=== PATIENT | female | born 1980 | race African-American/Black ===

== ENCOUNTER 2023-02-25 10:23 | Emergency (ER) | payer OTHER ==
[2023-02-25 10:39] VITALS: BP 136/85; PULSE 64; RESP 16; TEMP 98.2; BMI 25.0
[2023-02-25] MEDS ORDERED: KETOROLAC TROMETHAMINE 30 MG/1 ML VIAL IM ONE (11:15)
[2023-02-25] MEDS ORDERED: KETOROLAC TROMETHAMINE 30 MG/1 ML VIAL ONE (11:26)
== END 2023-02-25 11:49 | disposition home or self-care (01) ==
LOC: JERFT 10:23
PROC: 3E0233Z Introduction of Anti-inflammatory into Muscle, Percutaneous Approach (ICD-10-PCS; principal; 2023-02-25)
DX: M54.6 Pain in thoracic spine (principal)
CPT/HCPCS: 99284-25

== ENCOUNTER 2024-07-28 07:53 | Emergency (ER) | payer OTHER ==
[2024-07-28 08:00] VITALS: TEMP 98.4; BMI 25.8
[2024-07-28] MEDS: ACETAMINOPHEN 500 MG TABLET (FP) PO ONE ×2 (08:40→08:51)
[2024-07-28] MEDS ORDERED: FAMOTIDINE 20 MG/50 ML IVPB 20 MG/50 ML MG IVPB ONE (08:43)
[2024-07-28] MEDS ORDERED: ACETAMINOPHEN 500 MG TABLET (FP) ONE (08:43)
[2024-07-28] MEDS ORDERED: MAG HYDROX/AL HYDROX/SIMETH 30 ML UNIT-DOSE CUP ONE (08:43)
[2024-07-28 08:46] LABS: EPI CELLS 14 /uL (0-25.1); HYALINE CASTS 1 /uL (0-3.1); PH,URINE 6.5 (5.0-8.0); URINE APPEARANCE CLEAR; URINE BACTERIA 79 /uL (0-1359); URINE BILIRUBIN NEGATIVE (NEGATIVE); URINE COLOR YELLOW; URINE GLUCOSE (UA) NEGATIVE (NEGATIVE); URINE KETONE 3+ (NEGATIVE); URINE LEUK ESTERASE NEGATIVE (NEGATIVE); URINE NITRITE NEGATIVE (NEGATIVE); URINE PROTEIN 1+ (NEGATIVE); URINE WBC 10 /uL (0-25.8)
[2024-07-28 08:47] LABS: HCG,QUALITATIVE URINE Positive
[2024-07-28 08:50] LABS: ABSOLUTE IMMATURE GRANULOCYTES 0.01 x10^3/uL (0.0-0.031); BASOPHILS # 0.01 x10^3/uL (0.01-0.08); EOSINOPHIL % 0.8 % (0.7-5.8); EOSINOPHILS # 0.03 x10^3/uL (0.04-0.36); HEMATOCRIT 46.5 % (34.1-44.9); HEMOGLOBIN 15.5 g/dL (11.2-15.7); MCHC 33.3 g/dl (32.2-35.5); MEAN CELL VOLUME 90.6 fl (79.4-94.8); MEAN PLT VOLUME 11.9 fl (9.4-12.3); MONOCYTE # 0.62 x10^3/uL (0.24-0.86); MONOCYTE % 16.6 % (4.7-12.5); PLATELET COUNT 181 x10^3/uL (182-369); RDW 11.6 % (12.2-17.1)
[2024-07-28] MEDS: MAG HYDROX/AL HYDROX/SIMETH 30 ML UNIT-DOSE CUP PO ONE (08:51)
[2024-07-28] MEDS: FAMOTIDINE 20 MG/50 ML IVPB 20 MG/50 ML MG IVPB ONE (08:51)
[2024-07-28] MEDS: SODIUM CHLORIDE 0.9% 500 ML INFUS.BAG IV ONE (08:51)
[2024-07-28 09:10] LABS: POTASSIUM 4.2 mmol/L (3.5-5.1)
[2024-07-28 09:12] LABS: CALCIUM 9.9 mg/dL (8.5-10.1)
[2024-07-28 09:14] LABS: BLOOD UREA NITROGEN 14.8 mg/dL (7-18)
[2024-07-28 09:16] LABS: CREATININE 0.7 mg/dL (0.55-1.3)
[2024-07-28 09:17] LABS: BILIRUBIN,TOTAL 0.8 mg/dL (0.2-1); TOT PROT 7.8 g/dl (6.4-8.2)
[2024-07-28 10:29] LABS: URINE RBC 123.4 /uL (0-23.9)
[2024-07-28] MEDS ORDERED: KETOROLAC TROMETHAMINE 30 MG/1 ML VIAL ONE (12:08)
[2024-07-28] MEDS: KETOROLAC TROMETHAMINE 30 MG/1 ML VIAL IVPUSH ONE (12:12)
[2024-07-28] MEDS: DEXTROSE 5%-NORMAL SALINE 1,000 ML IV ONE (12:20)
[2024-07-28 13:15] VITALS: BP 106/74; PULSE 65; RESP 13
== END 2024-07-28 13:52 | disposition home or self-care (01) ==
LOC: JER 07:53
PROC: 3E033GC Introduction of Other Therapeutic Substance into Peripheral Vein, Percutaneous Approach (ICD-10-PCS; principal; 2024-07-28)
PROC: 3E0333Z Introduction of Anti-inflammatory into Peripheral Vein, Percutaneous Approach (ICD-10-PCS; 2024-07-28)
PROC: 3E0337Z Introduction of Electrolytic and Water Balance Substance into Peripheral Vein, Percutaneous Approach (ICD-10-PCS; 2024-07-28)
DX: O09.529 Supervision of elderly multigravida, unspecified trimester (principal); O26.899 Other specified pregnancy related conditions, unspecified trimester; R10.2 Pelvic and perineal pain; R10.13 Epigastric pain; R10.32 Left lower quadrant pain; R10.33 Periumbilical pain; R53.1 Weakness; R63.8 Other symptoms and signs concerning food and fluid intake; O34.10 Maternal care for benign tumor of corpus uteri, unspecified trimester; O99.891 Other specified diseases and conditions complicating pregnancy; R50.9 Fever, unspecified; Z3A.00 Weeks of gestation of pregnancy not specified
CPT/HCPCS: 0241U-QW; 36415; 76830-TC; 80053; 81003; 83690; 84702; 84703; 85025; 87086; 99285-25